=== PATIENT | female | born 1980 | race Two or more races ===

== ENCOUNTER → 2024-12-19 | Outpatient (CLI) | payer MEDICAID, SELFPAY ==
--- NOTE | 2024-12-19 09:25 | XR_ITS ---
Examination: CT maxillofacial, without intravenous contrast. 2-D sagittal reconstructions. 3-D reconstructions. Date and time of exam:December 19, 2024 0947 hrs. Indications: History deviation nasal septum several years CTDI: vol (mGy):7.0 DLP: (mGycm):86.7 Technique: Multiple axial images of maxillofacial region, 3.0 mm slice thickness. 2-D sagittal and coronal reconstructions. 3-D reconstructions. Low dose protocols were performed. One or more of the following dose reduction techniques were used; automated exposure control, adjustment of the mA and/or KV according to patient size, use of iterative reconstruction technique. Findings: Minimal deviation nasal septum to the right 2 mm Mild frontal ethmoid maxillary antral sinusitis Moderate hypertrophy right inferior nasal turbinate Symmetrical mastoid aeration Impression: Minimal deviation nasal septum to the right 2 mm.
== END | disposition home or self-care (01) ==
PROVIDERS: PCP Nurse Practitioner; Referring Provider Otolaryngology Plastic Surgery within the Head & Neck; Visit Provider Otolaryngology Plastic Surgery within the Head & Neck
DX: J34.2 Deviated nasal septum (principal)
CPT/HCPCS: 70486

== ENCOUNTER → 2025-04-09 | Outpatient (CLI) | payer MEDICAID, SELFPAY ==
--- NOTE | 2025-04-09 14:15 | XR_ITS ---
Examination: Screening digital mammography, bilateral Computer aided detection 3-D breast Tomosynthesis, bilateral Date and time of exam: April 09, 2025 1412 hours Indication: Screening Technique: Nonmagnified MLO, CC views of the breasts to been obtained, reconstructed from 3-D Tomosynthesis images. R2 computer aided detection program utilized for evaluation of suspicious masses and/or abnormal calcifications. 3-D Tomosynthesis images obtained. Findings: The breasts are heterogeneously dense, which may obscure small masses 27 mm focal asymmetry retroareolar region left breast Benign calcifications Impression: BI-RADS Category 0: Incomplete: Need additional imaging evaluation 27 mm focal asymmetry retroareolar region left breast, recommend follow-up spot tomographic views of this asymmetry as well as left breast sonography to complete the workup
== END | disposition home or self-care (01) ==
LOC: CDIM 14:00
PROVIDERS: Referring Provider Family Medicine; Visit Provider Family Medicine
DX: Z12.31 Encounter for screening mammogram for malignant neoplasm of breast (principal); N64.89 Other specified disorders of breast
CPT/HCPCS: 77063; 77067

== ENCOUNTER → 2025-06-10 | Outpatient (CLI) | payer MEDICAID, SELFPAY ==
--- NOTE | 2025-06-10 10:00 | XR_ITS ---
Examination: Breast ultrasound, unilateral, left complete Date and time of exam: June 10, 2025 1118 hours INDICATIONS: Mammogram April 09, 2025 27 mm focal asymmetry retroareolar region left breast Technique: Real-time walters scale ultrasonographic imaging performed left breast including all 4 quadrants as well as nipple retroareolar and axillary region. Findings: No cystic or solid breast mass 3 cm axillary lymph node IMPRESSION: BI-RADS Category 2: Benign findings
== END | disposition home or self-care (01) ==
LOC: CDIM 11:07
PROVIDERS: PCP Family Medicine; Referring Provider Family Medicine; Visit Provider Family Medicine
DX: N63.20 Unspecified lump in the left breast, unspecified quadrant (principal)
CPT/HCPCS: 76641